=== PATIENT | male | born 1970 | race Caucasian/White ===

== ENCOUNTER 2016-09-17 17:19 | Emergency (ER) | payer OTHER ==
[~2016-09-17] VITALS: Ht 182.9 cm; Wt 49.9 kg
[2016-09-17 17:34] VITALS: BP 101/65
== END 2016-09-18 04:19 | disposition left against medical advice (07) ==
LOC: EDBD 17:19 → ER 17:23
DX: R55 Syncope and collapse (principal); R51 Headache; Z53.21 Procedure and treatment not carried out due to patient leaving prior to being seen by health care provider